=== PATIENT | male | born 1975 | race American Indian/Alaskan Native ===

== ENCOUNTER 2020-04-25 05:35 | Emergency (ER) | payer SELFPAY ==
--- NOTE | 2020-04-25 05:44 | Event Note ---
ED Screening Note Date of service: 04/25/20 Time: 05:43 ED Screening Note: Patient is a 45-year-old male who was awakened with palpitations and chest pain at 4/10 this morning. Patient is occasional drinker, smoker, patient states symptoms are exacerbated by nothing, symptoms are relieved by nothing. This initial assessment/diagnostic orders/clinical plan/treatment(s) is/are subject to change based on patients health status, clinical progression and re- assessment by fellow clinical providers in the ED. Further treatment and workup at subsequent clinical providers discretion. Patient/guardian urged not to elope from the ED as their condition may be serious if not clinically assessed and managed. Initial orders include:
[2020-04-25 06:00] LABS: Basophils # (Auto) 0.1 K/mm3 (0.0-0.1); Basophils % (Auto) 1.1 % (0.0-1.8); Eosinophils # (Auto) 0.1 K/mm3 (0.0-0.4); Eosinophils % (Auto) 2.5 % (0.0-4.3); Hematocrit 35.2 % (35.5-45.6); Hemoglobin 11.7 gm/dl (11.8-15.2); Lymphocytes # (Auto) 1.4 K/mm3 (1.2-5.4); Lymphocytes % (Auto) 25.5 % (13.4-35.0); Mean Corpuscular HGB Conc 33 % (32-34); Mean Corpuscular Volume 89 fl (84-94); Monocytes # (Auto) 0.4 K/mm3 (0.0-0.8); Monocytes % (Auto) 7.1 % (0.0-7.3); Platelet Count 280 K/mm3 (140-440); Red Blood Count 3.96 M/mm3 (3.65-5.03); Red Cell Distribution Width 16.5 % (13.2-15.2)
[2020-04-25 06:19] LABS: Alanine Aminotransferase 19 units/L (7-56); Albumin 4.6 g/dL (3.9-5); BUN/Creatinine Ratio 14; Blood Urea Nitrogen 15 mg/dL (9-20); Calcium 8.8 mg/dL (8.4-10.2); Hemolysis Index 14
--- NOTE | 2020-04-25 06:38 | XRay Report ---
CHEST 2 VIEWS INDICATION: chest pain. COMPARISON: 10/31/2019. FINDINGS: Support devices: None. Heart: Within normal limits. Lungs/Pleura: No acute air space or interstitial disease. No significant pleural effusion. IMPRESSION: No acute findings. Signer Name: Kris Gamez MD Signed: 04/25/2020 6:34 AM Workstation Name: [id number]
[2020-04-25 07:29] VITALS: BP 145/80
[2020-04-25 07:39] LABS: Bilirubin,Urine NEG (Negative); Blood,Urine NEG (Negative); Color,Urine Straw (Yellow); Mucus,Urine FEW /HPF; Protein,Urine <15 mg/dL mg/dL (Negative); Urobilinogen,Urine < 2.0 mg/dL (<2.0)
--- NOTE | 2020-04-25 07:43 | Emergency Department Report ---
ED Chest Pain HPI - General Chief Complaint: Arrhythmia/Palpitations Stated Complaint: CHEST PAIN/SOB Time Seen by Provider: 04/25/20 07:15 Source: patient Mode of arrival: Ambulatory Limitations: No Limitations - History of Present Illness Initial Comments: This is a 45-year-old man with no cardiac history and no history of hypertension. He presented due to palpitations. He had some cardiac awareness in his chest but really did not describe chest pain to me. He stated he felt slightly sweaty but not diaphoretic. There was no nausea no vomiting no fever no cough and no shortness of breath. He has had no recent travel, no leg pain or swelling. He states he has not been troubled with palpitations recurrently. His symptoms are completely resolved at the time of my encounter. He states that over the past 3 days he has been drinking alcohol, using caffeine and exerting himself. He denies any other substance abuse. 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 He denies having a primary care provider. He takes no regular medications. MD Complaint: chest pain (As above described), other -: Gradual, minutes(s) Onset: during rest Pain Location: other (General) Pain Radiation: none Severity: mild Severity scale (0 -10): 0 Quality: other (Associated with palpitations was not described to me as pain) Consistency: now resolved Improves With: nothing Worsens With: other (See HPI) Context: other (See HPI) - Related Data Previous Rx's Medication Instructions Recorded Last Taken Type Butalb/Acetamin/Caff 50-325-40 1 each PO Q4H PRN #20 tablet 10/07/13 Unknown Rx [Fioricet] Cyclobenzaprine [Flexeril 10mg] 10 mg PO TID PRN #20 tablet 10/07/13 Unknown Rx Naproxen Sodium [Aleve] 220 mg PO Q8H PRN #50 tablet 06/13/14 Unknown Rx Albuterol Sulfate [Proventil Hfa] 2 puff IH QID PRN #1 hfa.aer.ad 10/31/19 Unknown Rx Doxycycline Hyclate [Doxycycline 100 mg PO Q12HR 10 Days #20 tab 10/31/19 Unknown Rx Hyclate TAB] predniSONE [Deltasone] 40 mg PO QDAY 5 Days #10 tab 10/31/19 Unknown Rx Allergies Allergy/AdvReac Type Severity Reaction Status Date / Time No Known Allergies Allergy Verified 10/06/13 21:33 Heart Score - HEART Score History: Slightly suspicious EKG: Normal Age: < 45 Risk factors: No known risk factors Troponin: < normal limit HEART Score: 0 - Critical Actions Critical Actions: 0-3 pts:0.9-1.7%risk of adverse cardiac event.Candidate for discharge ED Review of Systems ROS: Stated complaint: CHEST PAIN/SOB Other details as noted in HPI Constitutional: denies: chills, fever Eyes: denies: eye pain, eye discharge, vision change ENT: denies: ear pain, throat pain Respiratory: denies: cough, shortness of breath, wheezing Cardiovascular: as per HPI, chest pain, palpitations Endocrine: no symptoms reported Gastrointestinal: denies: abdominal pain, nausea, diarrhea Genitourinary: denies: urgency, dysuria Musculoskeletal: denies: back pain, joint swelling, arthralgia Skin: denies: rash, lesions Neurological: denies: headache, weakness, paresthesias Psychiatric: denies: anxiety, depression Hematological/Lymphatic: denies: easy bleeding, easy bruising ED Past Medical Hx - Past Medical History Previous Medical History?: No Hx Hypertension: No Hx CVA: No Hx Heart Attack/AMI: No Hx Congestive Heart Failure: No Hx Diabetes: No Hx Deep Vein Thrombosis: No Hx Pulmonary Embolism: No Hx GERD: No Hx Liver Disease: No Hx Renal Disease: No Hx Arthritis: No Hx Headaches / Migraines: No Hx Seizures: No Hx Kidney Stones: No Hx Psychiatric Treatment: No Hx Asthma: No Hx COPD: No Hx Tuberculosis: No Hx Dementia: No Hx HIV: No - Surgical History Hx Coronary Stent: No Hx Open Heart Surgery: No Hx Pacemaker: No Hx Internal Defibrillator: No Hx Cholecystectomy: No Hx Appendectomy: No Hx Breast Surgery: No Additional Surgical History: right leg - Social History Smoking Status: Current Every Day Smoker Substance Use Type: Alcohol - Medications Home Medications: Home Medications Medication Instructions Recorded Confirmed Last Taken Type Butalb/Acetamin/Caff 50-325-40 1 each PO Q4H PRN #20 tablet 10/07/13 Unknown Rx [Fioricet] Cyclobenzaprine [Flexeril 10mg] 10 mg PO TID PRN #20 tablet 10/07/13 Unknown Rx Naproxen Sodium [Aleve] 220 mg PO Q8H PRN #50 tablet 06/13/14 Unknown Rx Albuterol Sulfate [Proventil Hfa] 2 puff IH QID PRN #1 hfa.aer.ad 10/31/19 Unknown Rx Doxycycline Hyclate [Doxycycline 100 mg PO Q12HR 10 Days #20 tab 10/31/19 Unknown Rx Hyclate TAB] predniSONE [Deltasone] 40 mg PO QDAY 5 Days #10 tab 10/31/19 Unknown Rx ED Physical Exam - General Limitations: No Limitations General appearance: alert, in no apparent distress - Head Head exam: Present: atraumatic, normocephalic - Eye Eye exam: Present: normal appearance. Absent: scleral icterus - ENT ENT exam: Present: mucous membranes moist - Neck Neck exam: Present: normal inspection - Respiratory Respiratory exam: Present: normal lung sounds bilaterally. Absent: respiratory distress - Cardiovascular Cardiovascular Exam: Present: regular rate, normal rhythm. Absent: systolic murmur, diastolic murmur, rubs, gallop - GI/Abdominal GI/Abdominal exam: Present: soft, normal bowel sounds. Absent: distended, tenderness, guarding, rebound, rigid - Rectal Rectal exam: Present: deferred - Extremities Exam Extremities exam: Present: normal inspection, normal capillary refill. Absent: pedal edema, joint swelling, calf tenderness - Back Exam Back exam: Present: normal inspection - Neurological Exam Neurological exam: Present: alert, oriented X3, CN II-XII intact. Absent: motor sensory deficit - Psychiatric Psychiatric exam: Present: normal affect, normal mood - Skin Skin exam: Present: warm, dry, intact, normal color. Absent: rash ED Course Vital Signs 04/25/20 04/25/20 04/25/20 05:37 07:28 07:29 Temperature 98.3 F Pulse Rate 88 81 Respiratory 18 14 14 Rate Blood Pressure 144/73 Blood Pressure 145/80 [Right] O2 Sat by Pulse 100 99 99 Oximetry - Reevaluation(s) Reevaluation #1: Recheck blood pressure, essentially normal range. 04/25/20 07:42 DAVIAN score - Davian Score Age > 65: (0) No Aspirin use within the Past 7 Days: (0) No 3 or more CAD Risk Factors: (0) No 2 or more Angina events in past 24 hrs: (0) No Known CAD with more than 50% Stenosis: (0) No Elevated Cardiac Markers: (0) No ST Deviation Greater than 0.5mm: (0) No DAVIAN Score: 0 ED Medical Decision Making - Lab Data Result diagrams: 04/25/20 05:45 04/25/20 05:45 Laboratory Results - last 24 hr 04/25/20 04/25/20 04/25/20 05:45 05:45 07:27 WBC 5.5 RBC 3.96 Hgb 11.7 L Hct 35.2 L MCV 89 MCH 30 MCHC 33 RDW 16.5 H Plt Count 280 Lymph % (Auto) 25.5 Wake % (Auto) 7.1 Eos % (Auto) 2.5 Baso % (Auto) 1.1 Lymph # (Auto) 1.4 Wake # (Auto) 0.4 Eos # (Auto) 0.1 Baso # (Auto) 0.1 Seg Neutrophils % 63.8 Seg Neutrophils # 3.5 Sodium 138 Potassium 3.8 Chloride 102.2 Carbon Dioxide 28 Anion Gap 12 BUN 15 Creatinine 1.1 Estimated GFR > 60 BUN/Creatinine Ratio 14 Glucose 98 Calcium 8.8 Total Bilirubin 0.30 AST 26 ALT 19 Alkaline Phosphatase 73 Troponin T < 0.010 Total Protein 6.8 Albumin 4.6 Albumin/Globulin Ratio 2.1 Urine Bilirubin Neg Urine RBC (Auto) 2.0 U Epithel Cells (Auto) < 1.0 - EKG Data -: EKG Interpreted by Or EKG shows normal: sinus rhythm, axis, intervals, QRS complexes, ST-T waves Rate: normal - EKG Data Interpretation: other (PVCs noted) - Radiology Data Radiology results: report reviewed (Chest x-ray no acute process) Critical care attestation.: If time is entered above; I have spent that time in minutes in the direct care of this critically ill patient, excluding procedure time. ED Disposition Clinical Impression: PVCs (premature ventricular contractions), Atypical chest pain Disposition: DC-01 TO HOME OR SELFCARE Is pt being admited?: No Does the pt Need Aspirin: No Condition: Stable Instructions: Nonspecific Chest Pain, Adult, Premature Ventricular Contraction, Coping with Quitting Smoking, Steps to Quit Smoking, [id number] Additional Instructions: Further evaluation is advised. You are mildly anemic. This will be worked up by a primary care doctor or clinic, see referral. [employer] follow-up for your extra beats. Return to the emergency department any recurrent symptoms or acute change. I would advise smoking cessation and 1 baby aspirin a day. Referrals: PRIMARY CARE, [Primary Care Provider] - 3-5 Days OMARI FINN MD [Staff Physician] - 3-5 Days MARA GIL MD [Staff Physician] - 3-5 Days [facility] [Provider Group] - 2-3 Days Time of Disposition: 07:46
[2020-04-25 07:47] LABS: Amphetamine Screen,Urine Negative; Benzodiazepines Screen,Urine Negative; Cannabinoid Screen,Urine Negative; Cocaine Screen,Urine Negative; Methadone Screen,Urine Negative; Opiate Screen,Urine Negative
== END 2020-04-25 08:05 | disposition home or self-care (01) ==
LOC: ED 05:35
DX: I49.3 Ventricular premature depolarization (principal); R07.89 Other chest pain; F17.200 Nicotine dependence, unspecified, uncomplicated; Z79.899 Other long term (current) drug therapy
CPT/HCPCS: 36415; 71046; 80053; 80307; 81001; 84484; 85025; 87086; 93005